=== PATIENT | female | born 1980 | race Caucasian/White ===

== ENCOUNTER 2019-03-28 12:15 | Emergency (ER) | payer SELFPAY ==
[~2019-03-28] VITALS: Ht 165.1 cm; Wt 81.6 kg
[2019-03-28 12:28] VITALS: BP 142/73; Ht 165.1 cm; Wt 81.6 kg
== END 2019-03-28 14:53 | disposition left against medical advice (07) ==
LOC: ED 12:15
DX: Z53.21 Procedure and treatment not carried out due to patient leaving prior to being seen by health care provider (principal)